=== PATIENT | female | born 1970 | race Caucasian/White ===

== ENCOUNTER 2019-04-11 06:00 | Day surgery (SDC) | payer BC ==
[~2019-04-11] VITALS: Ht 182.9 cm; Wt 85.3 kg
[2019-04-11] MEDS ORDERED: PROPOFOL 200MG/ 20ML VIAL (DIPRIVAN) IV ONE (07:15)
[2019-04-11] MEDS ORDERED: MIDAZOLAM HCL 5 MG/5 ML VIAL IVP ONE (07:15)
[2019-04-11] MEDS ORDERED: DEXAMETHASONE SOD PHOSPHATE 4 MG/ML VIAL IVP ONE (07:15)
[2019-04-11] MEDS ORDERED: ROCURONIUM BROMIDE 10 MG/ML (ZEMURON) IV ONE (07:15)
[2019-04-11] MEDS ORDERED: SEVOFLURANE 15 MIN GAS INH ONE (07:15)
[2019-04-11] MEDS ORDERED: LIDOCAINE/EPI 1% 1:100000 20 ML VIAL INJ ONE (07:15)
[2019-04-11] MEDS ORDERED: FAMOTIDINE 20 MG TABLET PO ONE (07:15)
[2019-04-11] MEDS ORDERED: OXYMETAZOLINE HCL 0.05% NASAL SPRAY NS ONE (07:15)
[2019-04-11] MEDS ORDERED: LR 1,000 ML IV.SOLN IV ONE (07:15)
[2019-04-11] MEDS ORDERED: fentaNYL CITRATE 250 MCG/5 ML AMP IV ONE (07:15)
[2019-04-11] MEDS ORDERED: D5/0.45 NS 1,000 ML IV.SOLN IV ONE (07:15)
[2019-04-11] MEDS ORDERED: METOCLOPRAMIDE HCL 10 MG/2 ML VIAL IVP ONE (07:15)
[2019-04-11] MEDS ORDERED: NS IRRIG SOLN 1000 ML IR ONE (07:15)
[2019-04-11] MEDS ORDERED: ONDANSETRON HCL 4 MG/2 ML VIAL IVP ONE (07:15)
[2019-04-11] MEDS ORDERED: KETOROLAC TROMETHAMINE 30 MG VIAL IVP ONE (07:15)
[2019-04-11] MEDS ORDERED: FAMOTIDINE PF 20 MG/2 ML VIAL ONE (08:06)
== END 2019-04-11 11:10 | disposition home or self-care (01) ==
LOC: SDS 06:00
PROVIDERS: ATTEND Otolaryngology
DX: J34.89 Other specified disorders of nose and nasal sinuses (principal); J34.2 Deviated nasal septum; H93.13 Tinnitus, bilateral; J30.1 Allergic rhinitis due to pollen; Z82.49 Family history of ischemic heart disease and other diseases of the circulatory system
CPT/HCPCS: 88305; 88311; J1100; J1885; J2250; J2405; J2704; J2765; J3010; J3490; J7120